=== PATIENT | female | born 2000 | race Caucasian/White ===

== ENCOUNTER 2021-05-24 23:46 | Emergency (ER) | payer OTHER, SELFPAY ==
[2021-05-24 23:59] VITALS: BP 120/89; PULSE 89; RESP 16; TEMP 36.8; O2SAT 100
--- NOTE | 2021-05-25 00:05 | PC.NURSE ---
Addendum entered by Dai Pedersen RN 05/25/21 00:08: Meds on-call activated at 2359* not 0059 on 05/24/21. Original Note: Meds on-call activated at 0059 on 05/24/21.
--- NOTE | 2021-05-25 00:16 | PC.NURSE ---
Romy at [facility] returned call at 0015.
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
--- NOTE | 2021-05-25 02:50 | PC.NURSE ---
Pt reports during pelvic exam, I was a lot more sore yesterday .
--- NOTE | 2021-05-25 03:00 | PC.NURSE ---
Kit complete, offered pt shower. Pt declines I will take one at home .
--- NOTE | 2021-05-25 03:10 | PC.NURSE ---
Maryana industrial technology teacher, at bedside to collect blood.
--- NOTE | 2021-05-25 03:10 | PC.NURSE ---
Dr. Russell at bedside for medical clearance exam.
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
[2021-05-25] MEDS: ONDANSETRON HCL ODT 4 MG TABLET PO (03:25)
[2021-05-25] MEDS: metroNIDAZOLE 250 MG TABLET 2000 MG PO (03:25)
[2021-05-25] MEDS: ULIPRISTAL ACETATE 30 MG TABLET PO (03:26)
[2021-05-25] MEDS: DOXYCYCLINE HYCLATE 100 MG TABLET PO (03:26)
[2021-05-25] MEDS: cefTRIAXone 1 GM VIAL 0.5 GM IM (03:27)
[2021-05-25] MEDS: LIDOCAINE HCL 1% LOCAL INJ 20 ML VIAL 2.1 ML XX (03:27)
[2021-05-25 03:40] VITALS: BP 118/78; PULSE 88; RESP 16; O2SAT 100
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
--- NOTE | 2021-05-25 04:40 | PC.NURSE ---
Kit released to Officer Francisco Javier Rojo of [facility] Department.
[2021-05-25 07:29] LABS: Rapid Plasma Reagin Non-Reactive (NonReactive)
[2021-05-28 19:06] LABS: HIV 1 RNA PCR <1.30 Log cps/mL; HIV 1 RNA PCR <20 Copies/mL
== END 2021-05-25 03:41 | disposition home or self-care (01) ==
LOC: ANHED 05-25 03:36
PROVIDERS: Emergency Provider Emergency Medicine
DX: T74.21XA Adult sexual abuse, confirmed, initial encounter (principal); Y07.50 Unspecified non-family member, perpetrator of maltreatment and neglect
CPT/HCPCS: 36415; 81025; 86592; 87536; 96372; 99285; A9270; J0696